=== PATIENT | female | born 1990 | race Caucasian/White ===

== ENCOUNTER 2024-07-28 05:58 | Observation (INO) ==
[2024-07-28 06:08] VITALS: PULSE 58; RESP 18; TEMP 98.2
[2024-07-28] MEDS ORDERED: OXYTOCIN 30 UNITS/NSS 30 UNITS/500 ML BAG IV PRN (06:45)
[2024-07-28] MEDS ORDERED: CALCIUM CARBONATE 500 MG CHEWABLE TAB PO PRN (06:45)
[2024-07-28] MEDS ORDERED: LIDOCAINE 1% LOCAL 20 ML VIAL INFIL PRN (06:45)
[2024-07-28] MEDS ORDERED: ACETAMINOPHEN 325 MG TAB PO PRN (06:45)
[2024-07-28] MEDS: LACTATED RINGER'S 1,000 ML IV SCH (06:50)
--- NOTE | 2024-07-28 07:06 | History & Physical Report ---
Date of Service July 28, 2024 Assessment & Plan (1) PROM w/onset labor within 24 hours rupture in 3rd trimester: Plan: IUP at 33 6/7 weeks with documented SPROM and early labor GBS culture obtained PCN GBS prophylaxis started Celestone IM will also be given contacted [facility] [place] for possible transfer given late SPROM and labor if possible. Dr. Rushing will accept transfer to [facility] by [facility] cervix exam now at 7:45 am is 3cm/90/0 posterior History of Present Illness Primary Care Provider: Sharri Escalante MD Patient is a 34 yo female EDC 09/09/24 who presents at 33 6/7 weeks with SPROM at 3:30 this AM. she had one episode of bloody mucus at 2:30 am and then a gush of clear fluid at 3:30 am. she began to contract regularly shortly after the gush of fluid. complicated by AMA status- testing has been reassuring. Panorama testing was low risk male. She has been measuring S>D in third trimester. last growth scan at 32 weeks was >98%ile for both EFW & AC. EFW then was 2574 grams (5lbs 10 ozs). GBS status unknown. Blood type O negative. Allergies Allergy/AdvReac Type Severity Reaction Status Date / Time No Known Allergies Allergy Verified 07/28/24 06:08 Home Medications Medication Instructions Recorded Confirmed Type prenat.vits,yahaira,kdy-rjaf-gycua 1 tab PO QAM 11/22/22 07/28/24 History sertraline 50 mg tablet 50 mg PO QAM #90 tabs 07/01/24 07/28/24 Rx Patient History Medical History History of chicken pox IBS (irritable bowel syndrome) Anxiety Surgical History S/P laparoscopy History of esophagogastroduodenoscopy (EGD) History of colonoscopy History of arthroscopy of left knee History of wisdom tooth extraction Family History Grandmother (Maternal) Scleroderma Osteoporosis Father Hypertension Kidney stone Mother Hypertension Dyslipidemia Fibroids Kidney stone Denies family history of Ovarian cancer Prostate cancer Myocardial infarction Breast cancer Colorectal cancer Social History Smoking Status: Never smoker Second Hand Exposure: No; Do You Dip or Chew Tobacco: No; Hx Alcohol Use: No Hx Substance Use: No Preferred Language: [place] Communication Ability: Effective Visual Impairment: Limited Hearing Ability: Normal Director Of Rooms Required: No Beliefs That Will Affect Care: None marital status: Current Living Situation: Spouse Current Living Situation Comment: lives with spouse, dog, cat-spouse changing litter current occupational status: employed 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, geology How many Children do You have: 0 Other Information That Helps Us Care for You: No Feels Safe at Home: Yes Safety Concerns: Feels Safe At This Time Childhood Exposure to Second-Hand Smoke: No Diet: regular during the past year weight has: remained stable Dental Care, Regularly: Yes Physical Activity Frequency: 5-6 Times per Week Physical Activity Frequency Comment: Long distance trail running Seatbelt Use: always Sunscreen Use: Yes Assistive Devices: Contacts Review of Systems All systems reviewed & are unremarkable except as noted in HPI & below Physical Exam Constitutional: WD/WN, vitals as above Psychiatric: A+Ox3, euthymic affect Genitourinary: OB Exam Abdomen: + vertex (confirmed by bsus) and + regular contractions (Q3-5 minutes) Manual OB Exam: + cervical dilation (posterior) 2 cm, + cervical effacement 90%, + station 0 and + amniotic fluid (pooling - grossly ruptured ) clear, nitrazine positive and ferning present OB Exam Monitor Tracing: + external FHT monitor used, + external uterine monitor used, + category I and + normal FHT variability Results & Data Vital Signs (Past 12 Hours) Vital Signs Temp Pulse Resp BP 07/28/24 06:07 98.2 F 58 L 18 113/75 Coding Level of Care Code 30818 INT INP/OBS CARE 2/55MIN Diagnoses PROM w/onset labor within 24 hours rupture in 3rd trimester O42.013
[2024-07-28] MEDS: ONDANSETRON INJ 2 MG/ML 2 ML VIAL IV PRN (07:13)
[2024-07-28] MEDS: PENICILLIN GK 6 MU in SODIUM CHLORIDE 0.9% 250 ML IV STA (07:13)
[2024-07-28] MEDS: BETAMETH SOD PHOS/ACETATE IA 6 MG/ML IM STA (07:14)
[2024-07-28 07:19] LABS: Hematocrit (blood only) 35.8 % (37.0-47.0); Hemoglobin 12.2 g/dl (12.0-16.0); Mean Corpuscular Hemoglobin 31.8 pg (25.0-34.0); Mean Corpuscular Hgb Conc 34.1 g/dL (32.0-36.0); Mean Corpuscular Volume 93.2 fL (80.0-100.0); Mean Platelet Volume 10.7 fL (9.4-12.4); Platelet Count 240 K/uL (130-400); RDW Coefficient of Variation 12.8 % (11.5-14.5); RDW Standard Deviation 43.7 fL (36.4-46.3); Red Blood Count 3.84 M/uL (4.20-5.40); White Blood Count 10.12 K/ul (4.8-10.8)
[2024-07-28] MEDS ORDERED: AZITHROMYCIN 500 MG VIAL IV STA ×2 (07:21→07:30)
[2024-07-28] MEDS: AZITHROMYCIN 250 MG TAB PO STA (07:52)
[2024-07-28] MEDS: BETAMETH SOD PHOS/ACETATE IA 6 MG/ML ONE (07:54)
[2024-07-28] MEDS: LIDOCAINE 2% JELLY 5 ML TUBE EXT ONE (07:54)
[2024-07-28] MEDS: ONDANSETRON INJ 2 MG/ML 2 ML VIAL ONE (07:54)
[2024-07-28] MEDS: BUTORPHANOL TARTRATE 2 MG/ML VIAL IV ONE (07:56)
[2024-07-28 08:05] VITALS: BP 116/72
[2024-07-28] MEDS ORDERED: SERTRALINE HCL 50 MG TABLET PO SCH (09:00)
[2024-07-28] MEDS ORDERED: PENICILLIN GK 3 MU in DEXTROSE 5% 100 ML IV PRN (09:45)
--- NOTE | 2024-07-29 17:11 | Discharge Summary ---
Date of Service July 29, 2024 Admission HPI Per Admitting Provider Patient is a 34 yo female EDC 09/09/24 who presents at 33 6/7 weeks with SPROM at 3:30 this AM. she had one episode of bloody mucus at 2:30 am and then a gush of clear fluid at 3:30 am. she began to contract regularly shortly after the gush of fluid. complicated by AMA status- testing has been reassuring. Panorama testing was low risk male. She has been measuring S>D in third trimester. last growth scan at 32 weeks was >98%ile for both EFW & AC. EFW then was 2574 grams (5lbs 10 ozs). GBS status unknown. Blood type O negative. Admission Exam (Per Admitting) Constitutional WD/WN, vitals as above Psychiatric A+Ox3, euthymic affect Genitourinary OB Exam Abdomen: + vertex (confirmed by bsus) and + regular contractions (Q3-5 minutes) Manual OB Exam: + cervical dilation (posterior) + 2 cm, + cervical effacement + 90%, + station + 0 and + amniotic fluid (pooling - grossly ruptured ) + clear, + nitrazine positive and + ferning present OB Exam Monitor Tracing: + external FHT monitor used, + external uterine monitor used, + category I and + normal FHT variability Discharge Data Consultations 07/28/24 06:45 Consult Anesthesiology Stat Hospital Course (1) PROM w/onset labor within 24 hours rupture in 3rd trimester: IUP at 33 6/7 weeks with documented SPROM and early labor GBS culture obtained PCN GBS prophylaxis started Celestone IM will also be given contacted [facility] [place] for possible transfer given late SPROM and labor if possible. Dr. Rushing will accept transfer to [facility] by [facility] cervix exam now at 7:45 am is 3cm/90/0 posterior Discharge Plan Discharge Items Patient Disposition: Transfer Acute Care Hospital Reason For Visit: SPROM - 33+ WEEKS Discharge Diagnosis: SPROM at 33 6/7 weeks and labor Activity: As commented below Lifting: Wait until after follow-up appointment Non-emergency contact: Clinical Care Manager Call non-emergency contact if: your pain is concerning for you and your temperature is above 101.5 Follow-up/Referrals: Sharri Escalante MD [Primary Care Provider] - Diet: Regular OB Addtl Attending Provider Instructions: ACTIVITY RECOMMENDATIONS: * Gradual return to full activity over the next 2-3 weeks. * No lifting - nothing heavier than baby over the next 2-3 weeks. * Do not engage in vigorous exercise, sexual activity or sports until cleared by your physician. * Do not drive or operate any motorized equipment until cleared by your physician. * You may shower/bathe daily. MEDICATIONS: For discomfort or pain, you may use Acetaminophen (Tylenol), Ibuprofen (Advil), or Naproxen (Aleve) following the package directions. For constipation you may use Colace following the package directions. BREAST CARE: If you are not breast feeding: * Wear a supportive bra 24 hours a day for one to two weeks. * Avoid stimulating your breasts and nipples as much as possible during the first few weeks after delivery. * When taking a shower, have the warm water hit your back, not breasts. * When your breasts feel full, apply ice packs. Usually three to four times a day helps ease the discomfort. * Take a mild pain medication (Tylenol / Motrin) when you are uncomfortable. If breast feeding: * Use breast milk to lubricate nipples. Lansinoh cream may be used for sore nipples. You do not need to remove cream prior to breast feeding. If using a different brand of cream, check the label for directions regarding removal of cream prior to nursing. * Wear a supportive bra. * If having problems with breasts or breast feeding, call a transformation consultant or your health care provider. EPISIOTOMY CARE: After delivery, if you have an episiotomy (stitches), the following steps will ease discomfort and aid healing. * For the first 24 hours after delivery, place ice packs next to your episiotomy to help reduce swelling. * After the first 24 hour-period, sitz baths, either portable or in the tub, are suggested. A shower with a shower arm sprayed over the episiotomy may be comforting. * Ofelia care should be done after each voiding and bowel movement. Squirt warm water from a plastic bottle over the perineum (region of the body between the anus and urinary opening) and pat dry. * Use Dermoplast to ease discomfort. Shake container. [place] directly over the episiotomy. Place a Tucks on a clean sanitary pad next to your episiotomy. SPECIAL CARE INSTRUCTIONS: When you are discharged from the hospital, it is important for you to follow the instructions listed below: * During the first week at home, you should be able to care for yourself and your baby. In addition, the usual light household activities are encouraged. * Limit your activities to the way you feel. Do not try to clean the house or move furniture. Be sensible. * If you actively engage in sports and have done so up until the time of your delivery, you may resume these activities as soon as you feel able. This may take up to one month or even longer. Use good judgment. * Continue to take your vitamins for at least six weeks after the of your baby. * Your diet need not be limited unless you were on a special diet before your delivery. Breast-feeding mothers need around 2500 calories per day and at least 64-80 ounces of fluid per day (8 to 10 glasses). * You should eat foods from the four major food groups. Crash diets or fad di ets are to be avoided. Eating lean meats, fresh fruits and vegetables, low-fat dairy products, high fiber foods and a regular exercise program, will help you get back to your pre- weight without putting your health at risk. * Constipation is sometimes a problem after delivery. Take a mild laxative as needed. If breast feeding, Milk of Magnesia is acceptable to use. You may use a suppository or Fleets enema if no episiotomy. * A daily shower or tub bath is suggested. Be sure to thoroughly and gently dry the perineum. * A bloody vaginal discharge will usually continue until around four weeks post . A small amount of bleeding may continue for as long as six weeks. Vaginal discharge changes from the bright red bleeding after delivery to pink then brownish and finally yellowish-pink before becoming white and disappearing. * Bleeding may increase with activity. Your first period may come in 4-8 weeks. If you are breast feeding, your period may be delayed even longer. * [place] (sex) can begin whenever both you and your partner feel comfortable and do not have any form of genital infection. It is recommended that you wait at least six weeks for internal and external healing to occur. If you have questions, please talk to your health care practitioner. A condom should be used to prevent infection and . * Foreplay, gentle intercourse and lubrication is very important the first several times to prevent pain. A water-based lubricant such as K-Y jelly or Astroglide may be used. * If you have RH negative blood and your baby is RH positive, you will receive RHOGAM by injection prior to discharge. The nurse will give you a card to keep with you that has the date and place that you received RHOGAM after delivery. * During your care, you had a Rubella screen done to check for the presence of rubella antibodies in your blood. If your test was negative, you will receive a Rubella vaccine prior to discharge. This vaccine may cause a fever, soreness at the injection site and flu-like symptoms. If these symptoms persist, notify your health care practitioner. is not advised for one month after a Rubella vaccine. * Verbalizes understanding of car seat law as reviewed with patient nursing. * Car Seat hand-out given and reviewed with patient by nursing. * Shaken baby information reviewed with patient by nursing. Call you doctor if: * Heavy bleeding (saturating several pads an hour) or passing clots the size of your fist. * A fever >101 degrees F (38.3 degrees C) on two occasions four hours apart and/or chills. * Unusual pain in the pelvic or vaginal areas. * "Baby Blues" lasting longer than two weeks. If you have any questions or concerns, call your health care practitioner at . FOLLOW UP VISIT: * Please call the office at to schedule a 6 week examination. It is important you keep this appointment. It is important for you to make arrangements for either yearly or twice yearly check-ups thereafter. Pending Studies at Discharge: No Skilled Items Patient informed of condition?: Yes DNR: No Discharge Level of Care: Other Communicable Disease: No Discharge Prognosis: Stable Lines: Peripheral IV Urinary Catheter: Yes Medications and DC Order Prescriptions: Continued sertraline 50 mg tablet 50 mg PO QAM Qty: 90 3RF prenat.vits,yahaira,tld-roxb-[id number] Tablet 1 tab PO QAM Discharge Orders: Discharge Order (Routine); Ordered 07/29/24 Ordered By: Sariah Macias Admission Data Admit Date/Time: 07/28/24 06:45 Attending Provider: Sariah Macias Admit Provider: Sariah Macias Primary Care Provider: Sharri Escalante Other Providers: Mike Dia Coding Level of Care Code None Diagnoses PROM w/onset labor within 24 hours rupture in 3rd trimester O42.013
== END 2024-07-28 08:55 | disposition short-term general hospital (02) | DRG 833 ==
LOC: OPB 05:58 → 4S1 06:00 → INTOOBSV 06:45 → 4S1 06:45